=== PATIENT | male | born 1995 | race Two or more races ===

== ENCOUNTER 2020-10-25 19:22 | Emergency (ER) | payer MEDICAID, OTHER ==
[~2020-10-25] VITALS: Ht 188 cm; Wt 97.6 kg
--- NOTE | 2020-10-25 19:54 | NUR ---
PT AMBULATORY TO ROOM 34 W/ C/O NAUSEA, STEWART, FATIGUE, FEVER, SORE THROAT AND CONGESTION STARTED THURSDAY. PT STATES HE DOES NOT KNOW IF HE HAS HAD CONTACT W/ ANYONE WHO HAS COVID. PT HAS NOT BEEN VACCINATED. PT RESTING ON [facility]. NADN. VSS. CALL LIGHT IN REACH. PT STATES NO ONE ELSE IN FAMILY/HOUSEHOLD IS SICK.
--- NOTE | 2020-10-25 20:23 | NUR ---
PT RESTING ON GURNEY. NADN. AREVALO.
--- NOTE | 2020-10-25 20:40 | NUR ---
STUDENT AT BEDSIDE FOR EVAL. NOTIFIED OF TEMP IN LOBBY 100.9
--- NOTE | 2020-10-25 20:58 | NUR ---
REPORT GIVEN TO VICKEY GARZA.
[2020-10-25] MEDS ORDERED: IBUPROFEN 200 MG TABLET PO ONE (21:00)
[2020-10-25] MEDS ORDERED: IBUPROFEN 200 MG TABLET ONE (21:00)
[2020-10-25 21:06] VITALS: BP 118/73
[2020-10-25] MEDS ORDERED: DEXAMETHASONE 4 MG TABLET PO ONE (22:00)
[2020-10-25] MEDS ORDERED: DEXAMETHASONE 4 MG TABLET ONE (22:13)
--- NOTE | 2020-10-25 22:23 | NUR ---
Patient given discharge instructions and they have confirmed that they understand the instructions. Patient ambulatory with steady gait.
== END 2020-10-25 22:24 | disposition home or self-care (01) ==
LOC: ED 21:59
DX: U07.1 COVID-19 (principal); J18.9 Pneumonia, unspecified organism; R07.89 Other chest pain; J02.9 Acute pharyngitis, unspecified; R00.0 Tachycardia, unspecified
CPT/HCPCS: 71045; 87081; 87880; 93005; 99285; U0003; U0005

== ENCOUNTER 2020-10-29 03:44 | Inpatient (IN) | payer OTHER ==
[~2020-10-29] VITALS: Ht 188 cm; Wt 94.7 kg
[2020-10-29] MEDS ORDERED: ACETAMINOPHEN 325 MG TABLET PO ONE (04:00)
[2020-10-29] MEDS ORDERED: CEFTRIAXONE 1,000 MG in DEXTROSE 5% 50 ML IVPB ONE (04:00)
[2020-10-29] MEDS ORDERED: AZITHROMYCIN 500 MG in SODIUM CHLORIDE 0.9% 250 ML IVPB ONE (04:00)
[2020-10-29] MEDS ORDERED: SODIUM CHLORIDE FLUSH 10ML SYR IVF ONE (04:00)
[2020-10-29] MEDS ORDERED: SODIUM CHLORIDE 0.9% 1,000ML IVBOLUS ONE (04:00)
[2020-10-29] MEDS ORDERED: DEXAMETHASONE 4 MG/ML, 1ML ONE (04:12)
[2020-10-29] MEDS ORDERED: ONDANSETRON 2MG/ML, 2ML ONE (04:13)
[2020-10-29] MEDS ORDERED: ACETAMINOPHEN 325 MG TABLET ONE (04:13)
[2020-10-29] MEDS ORDERED: DEXAMETHASONE 4 MG/ML, 5ML ONE (04:19)
--- NOTE | 2020-10-29 04:27 | NUR ---
Patient presents to ER c/o fever and cough. Patient was seen for same x3 days ago and dx with COVID pna. Tonight, per monitor at home, patient SPO2 84-87% with temp of 100.5. Patient is in NAD. Respirations even and unlabored. O2 admin, IV established, meds admin per jun.
[2020-10-29] MEDS ORDERED: DEXAMETHASONE 4 MG/ML, 1ML IVPush ONE (04:30)
[2020-10-29] MEDS ORDERED: ONDANSETRON 2MG/ML, 2ML IVPush ONE (04:30)
[2020-10-29 04:39] LABS: BASOPHILS % (AUTO) 1 % (0-1); EOSINOPHILS % (AUTO) 0 % (1-7); LYMPHOCYTES % (AUTO) 21 % (22-44); MEAN CORPUSCULAR HGB CONC 34.6 g/dL (33.2-36.2); MEAN PLATELET VOLUME 7.8 fL (7.4-10.4); MONOCYTES % (AUTO) 8 % (2-9); NEUTROPHILS % (AUTO) 70 % (42-75); PLATELET COUNT 204 x10^3/uL (130-400); RED CELL DISTRIBUTION WIDTH 13.7 % (9.4-14.8)
[2020-10-29 04:48] LABS: ALANINE AMINOTRANSFERASE 54 U/L (12-78); ALBUMIN 3.1 g/dL (3.4-5.0); ANION GAP 4 mmol/L (5-15); CALCIUM 7.9 mg/dL (8.5-10.1); CHLORIDE 110 mmol/L (98-107); CREATININE 0.91 mg/dL (0.7-1.3)
[2020-10-29 04:54] LABS: ALKALINE PHOSPHATASE 56 U/L (45-117); BILIRUBIN,TOTAL 0.4 mg/dL (0.2-1.0); TOTAL PROTEIN 7.7 g/dL (6.4-8.2)
[2020-10-29] MEDS ORDERED: ZOLPIDEM 5MG TABLET PO PRN (06:30)
[2020-10-29] MEDS ORDERED: DOCUSATE 100 MG CAPSULE PO PRN (06:30)
[2020-10-29] MEDS: NS + 20MEQ KCL 1,000 ML IV SCH (06:30)
[2020-10-29] MEDS ORDERED: OXYcodone IR 5MG TABLET PO PRN (06:30)
[2020-10-29] MEDS ORDERED: METHOCARBAMOL 500 MG TABLET PO PRN (06:30)
[2020-10-29] MEDS ORDERED: PHARMACY MAY ADJ FOR RENAL FX MC PRN (06:30)
[2020-10-29] MEDS ORDERED: GUAIFENESIN/COD200MG-20MG/10ML LIQUID PO PRN (06:30)
[2020-10-29] MEDS ORDERED: ONDANSETRON 2MG/ML, 2ML IVPush PRN (06:30)
[2020-10-29] MEDS ORDERED: ACETAMINOPHEN 325 MG TABLET PO PRN (06:30)
[2020-10-29] MEDS ORDERED: ENALAPRILAT 1.25 MG/ML, 2ML IVPush PRN (06:30)
[2020-10-29] MEDS: ENOXAPARIN 40 MG/0.4 ML SQ SCH (06:40)
[2020-10-29] MEDS ORDERED: ENOXAPARIN 40 MG/0.4 ML ONE (06:46)
--- NOTE | 2020-10-29 07:00 | NUR ---
Report to VICKEY Kilpatrick. Patient care transferred.
--- NOTE | 2020-10-29 07:06 | NUR ---
ASSUMED CARE OF PT. HE IS RESTING IN [facility] (HOSP BED REQUESTED) W/ FAMILY BEDSIDE. NADN, CALL LIGHT W/IN REACH.
--- NOTE | 2020-10-29 07:46 | NUR ---
ASSESSED PT. HE WAS FOUND SLEEPING ON [facility], NADN. PT DENIES ANY NEED. PT HOSPITAL BED REQUESTED. CALL LIGHT W/IN REACH.
[2020-10-29] MEDS ORDERED: ASCORBIC ACID 500 MG TABLET ONE (08:35)
[2020-10-29] MEDS ORDERED: ZINC SULFATE 220 MG CAPSULE ONE (08:35)
[2020-10-29] MEDS ORDERED: BENZONATATE 100 MG CAPSULE ONE (08:36)
--- NOTE | 2020-10-29 08:41 | NUR ---
MED REQUEST SENT TO PHARMACY
--- NOTE | 2020-10-29 08:53 | NUR ---
task RN: pt mother requesting meal tray for patient. pt currently sleeping. primary RN to be notified
[2020-10-29] MEDS ORDERED: REMDESIVIR 200 MG in SODIUM CHLORIDE 0.9% 250 ML IVPB ONE (09:00)
[2020-10-29] MEDS: ZINC SULFATE 220 MG CAPSULE PO SCH (09:04)
[2020-10-29] MEDS: ASCORBIC ACID 500 MG TABLET PO SCH ×2 (09:04→20:03)
[2020-10-29] MEDS: BENZONATATE 100 MG CAPSULE PO SCH ×3 (09:05→20:03)
--- NOTE | 2020-10-29 09:28 | NUR ---
REQUESTED MEAL FOR PT, CN SAID NONE FOR VISITORS AT THIS TIME. PT MEDICATED PER JUN.
--- NOTE | 2020-10-29 10:18 | NUR ---
REQUESTED MEAL AGAIN IT HAS NOT YET ARRIVED. OFFERED HOSPITAL BED, PT DENIES WANTING IT AT THIS TIME. CALL LIGHT W/IN REACH, NICK.
[2020-10-29] MEDS: ALBUTEROL-IPRATROPIUM MDI INH INH SCH ×2 (10:58→16:55)
--- NOTE | 2020-10-29 11:23 | NUR ---
PT RESTING IN [facility]. CALL LIGHT W/IN REACH.
--- NOTE | 2020-10-29 12:14 | NUR ---
PT RESTING IN [facility], HIS TUBIN GHAD BECOME LOOSE WHICH WAS RETIGHTENED AND IV IN PLACE. PT OFFERED HOSPITAL BED, PT DECLINED. HE ALSO DECLINED LUNCH AT THIS TIME HE RECEIVED LATE BREAKFAST. NICK, CALL LIGHT W/IN REACH.
--- NOTE | 2020-10-29 13:32 | NUR ---
SBAR REPORT GIVEN TO PENNIE, ANSWERED QUESTIONS. PT IS READY TO TRANSFER UP TO THE FLOOR.
--- NOTE | 2020-10-29 13:39 | NUR ---
MOM WAS NOTIFIED SHE COULD NOT GO UP TO THE UNIT WITH PATIENT D/T OUR COVID VISITING POLICY.
[2020-10-29 14:00] VITALS: BP 119/75
[2020-10-29 14:39] VITALS: BP 119/75
[2020-10-29] MEDS: DEXAMETHASONE 4 MG TABLET PO SCH (16:55)
[2020-10-29 18:45] VITALS: BP 122/79
[2020-10-29] MEDS: ACETAMINOPHEN 325 MG TABLET PO PRN (20:06)
[2020-10-30 00:54] VITALS: BP 115/71
[2020-10-30] MEDS: ALBUTEROL-IPRATROPIUM MDI INH INH SCH ×5 (00:58→23:07)
[2020-10-30] MEDS: NS + 20MEQ KCL 1,000 ML IV SCH ×2 (00:58→16:41)
[2020-10-30] MEDS: CEFTRIAXONE 2 GM in DEXTROSE 5% 50 ML IVPB SCH (04:25)
[2020-10-30 04:33] LABS: BASOPHILS % (AUTO) 0 % (0-1); EOSINOPHILS % (AUTO) 0 % (1-7); LYMPHOCYTES % (AUTO) 21 % (22-44); MEAN CORPUSCULAR HEMOGLOBIN 30.8 pg (27.5-34.5); MEAN CORPUSCULAR HGB CONC 34.1 g/dL (33.2-36.2); MEAN PLATELET VOLUME 7.2 fL (7.4-10.4); MONOCYTES % (AUTO) 10 % (2-9); NEUTROPHILS % (AUTO) 69 % (42-75); PLATELET COUNT 229 x10^3/uL (130-400); RED BLOOD COUNT 5.07 x10^6/uL (4.38-5.82); RED CELL DISTRIBUTION WIDTH 13.8 % (9.4-14.8)
[2020-10-30 04:42] LABS: ALANINE AMINOTRANSFERASE 54 U/L (12-78); ALBUMIN 2.7 g/dL (3.4-5.0); ANION GAP 3 mmol/L (5-15); CALCIUM 7.8 mg/dL (8.5-10.1); CHLORIDE 110 mmol/L (98-107); CREATININE 0.68 mg/dL (0.7-1.3); INTERNATIONAL NORMALIZED RATIO 1.07 (0.93-1.1); PROTHROMBIN TIME 11.4 Seconds (9.6-11.5)
[2020-10-30 04:44] LABS: ALKALINE PHOSPHATASE 46 U/L (45-117); BILIRUBIN,TOTAL 0.3 mg/dL (0.2-1.0); TOTAL PROTEIN 6.8 g/dL (6.4-8.2)
[2020-10-30] MEDS: ENOXAPARIN 40 MG/0.4 ML SQ SCH (06:07)
[2020-10-30 07:18] VITALS: BP 100/61
[2020-10-30] MEDS: DEXAMETHASONE 4 MG TABLET PO SCH ×2 (09:07→16:40)
[2020-10-30] MEDS: AZITHROMYCIN 500 MG TABLET PO SCH (09:07)
[2020-10-30] MEDS: REMDESIVIR 100 MG in SODIUM CHLORIDE 0.9% 250 ML IVPB SCH (09:07)
[2020-10-30] MEDS: ACETAMINOPHEN 325 MG TABLET PO PRN ×3 (09:08→21:26)
[2020-10-30] MEDS: ASCORBIC ACID 500 MG TABLET PO SCH ×2 (09:08→21:27)
[2020-10-30] MEDS: ZINC SULFATE 220 MG CAPSULE PO SCH (09:08)
[2020-10-30] MEDS: BENZONATATE 100 MG CAPSULE PO SCH ×3 (09:08→21:27)
[2020-10-30 12:03] VITALS: BP 140/80
[2020-10-30 19:09] VITALS: BP 131/80
[2020-10-31 01:53] VITALS: BP 117/71
[2020-10-31 04:46] LABS: ALBUMIN 2.9 g/dL (3.4-5.0); ANION GAP 5 mmol/L (5-15); CALCIUM 8.2 mg/dL (8.5-10.1); CHLORIDE 110 mmol/L (98-107)
[2020-10-31 04:49] LABS: ALANINE AMINOTRANSFERASE 52 U/L (12-78); ALKALINE PHOSPHATASE 46 U/L (45-117); BILIRUBIN,TOTAL 0.3 mg/dL (0.2-1.0); CREATININE 0.68 mg/dL (0.7-1.3)
[2020-10-31] MEDS: ALBUTEROL-IPRATROPIUM MDI INH INH SCH ×4 (05:12→22:25)
[2020-10-31] MEDS: CEFTRIAXONE 2 GM in DEXTROSE 5% 50 ML IVPB SCH (05:12)
[2020-10-31] MEDS: ENOXAPARIN 40 MG/0.4 ML SQ SCH (05:13)
[2020-10-31] MEDS: ACETAMINOPHEN 325 MG TABLET PO PRN ×2 (05:14→20:56)
[2020-10-31] MEDS: NS + 20MEQ KCL 1,000 ML IV SCH ×2 (06:08→22:26)
[2020-10-31 07:51] VITALS: BP 117/71
[2020-10-31] MEDS: ZINC SULFATE 220 MG CAPSULE PO SCH (08:43)
[2020-10-31] MEDS: AZITHROMYCIN 500 MG TABLET PO SCH (08:43)
[2020-10-31] MEDS: BENZONATATE 100 MG CAPSULE PO SCH ×3 (08:43→20:56)
[2020-10-31] MEDS: ASCORBIC ACID 500 MG TABLET PO SCH ×2 (08:44→20:56)
[2020-10-31] MEDS: DEXAMETHASONE 4 MG TABLET PO SCH ×2 (08:44→17:08)
[2020-10-31] MEDS: REMDESIVIR 100 MG in SODIUM CHLORIDE 0.9% 250 ML IVPB SCH (09:16)
[2020-10-31 12:17] VITALS: BP 132/81
[2020-10-31 20:32] VITALS: BP 125/81
[2020-11-01 00:32] VITALS: BP 128/81
[2020-11-01] MEDS: ALBUTEROL-IPRATROPIUM MDI INH INH SCH ×4 (05:04→21:00)
[2020-11-01] MEDS: CEFTRIAXONE 2 GM in DEXTROSE 5% 50 ML IVPB SCH (05:04)
[2020-11-01] MEDS: ENOXAPARIN 40 MG/0.4 ML SQ SCH (05:04)
[2020-11-01 07:09] VITALS: BP 118/74
[2020-11-01] MEDS: NS + 20MEQ KCL 1,000 ML IV SCH (08:22)
[2020-11-01] MEDS: ASCORBIC ACID 500 MG TABLET PO SCH ×2 (08:22→20:39)
[2020-11-01] MEDS: AZITHROMYCIN 500 MG TABLET PO SCH (08:23)
[2020-11-01] MEDS: BENZONATATE 100 MG CAPSULE PO SCH ×3 (08:23→20:39)
[2020-11-01] MEDS: DEXAMETHASONE 4 MG TABLET PO SCH (08:23)
[2020-11-01] MEDS: ZINC SULFATE 220 MG CAPSULE PO SCH (08:23)
[2020-11-01 08:40] LABS: ANION GAP 5 mmol/L (5-15); CALCIUM 8.2 mg/dL (8.5-10.1); CHLORIDE 109 mmol/L (98-107); CREATININE 0.66 mg/dL (0.7-1.3)
[2020-11-01 08:41] LABS: ALANINE AMINOTRANSFERASE 71 U/L (12-78); ALBUMIN 2.7 g/dL (3.4-5.0)
[2020-11-01 08:42] LABS: ALKALINE PHOSPHATASE 43 U/L (45-117); BILIRUBIN,TOTAL 0.3 mg/dL (0.2-1.0); TOTAL PROTEIN 6.8 g/dL (6.4-8.2)
[2020-11-01] MEDS: REMDESIVIR 100 MG in SODIUM CHLORIDE 0.9% 250 ML IVPB SCH (09:04)
[2020-11-01] MEDS: ACETAMINOPHEN 325 MG TABLET PO PRN (09:11)
[2020-11-01] MEDS ORDERED: FUROSEMIDE 20 MG/2 ML IV ONE (11:00)
[2020-11-01 14:21] VITALS: BP 114/72
[2020-11-01 20:33] VITALS: BP 129/79
[2020-11-02 00:36] VITALS: BP 126/79
[2020-11-02] MEDS: CEFTRIAXONE 2 GM in DEXTROSE 5% 50 ML IVPB SCH (05:11)
[2020-11-02] MEDS: ACETAMINOPHEN 325 MG TABLET PO PRN ×2 (05:16→09:34)
[2020-11-02] MEDS: ALBUTEROL-IPRATROPIUM MDI INH INH SCH ×3 (05:19→16:14)
[2020-11-02] MEDS: ENOXAPARIN 40 MG/0.4 ML SQ SCH (05:23)
[2020-11-02] MEDS ORDERED: DEXAMETHASONE 4 MG TABLET PO SCH (09:00)
[2020-11-02] MEDS ORDERED: DEXA4TAB66 PO (09:06)
[2020-11-02] MEDS ORDERED: BENZ-17 PO (09:06)
[2020-11-02] MEDS ORDERED: Albuterol-Ipratropium Mdi INH (09:06)
[2020-11-02] MEDS ORDERED: ALBU18HF PO (09:07)
[2020-11-02] MEDS: AZITHROMYCIN 500 MG TABLET PO SCH (09:32)
[2020-11-02] MEDS: REMDESIVIR 100 MG in SODIUM CHLORIDE 0.9% 250 ML IVPB SCH (09:32)
[2020-11-02] MEDS: ASCORBIC ACID 500 MG TABLET PO SCH (09:34)
[2020-11-02] MEDS: BENZONATATE 100 MG CAPSULE PO SCH ×2 (09:34→16:14)
[2020-11-02] MEDS: ZINC SULFATE 220 MG CAPSULE PO SCH (09:34)
[2020-11-02 09:39] VITALS: BP 132/71
[2020-11-02 09:39] LABS: ALBUMIN 3.1 g/dL (3.4-5.0); ANION GAP 6 mmol/L (5-15); CALCIUM 8.3 mg/dL (8.5-10.1); CHLORIDE 108 mmol/L (98-107)
[2020-11-02 09:43] LABS: ALANINE AMINOTRANSFERASE 106 U/L (12-78); ALKALINE PHOSPHATASE 41 U/L (45-117); BILIRUBIN,TOTAL 0.4 mg/dL (0.2-1.0); CREATININE 0.75 mg/dL (0.7-1.3); TOTAL PROTEIN 7.2 g/dL (6.4-8.2)
[2020-11-02 12:02] VITALS: BP 131/81
== END 2020-11-02 17:31 | disposition home health service (06) | DRG 871 ==
LOC: ED 05:08 → EDIP 05:14 → 3N 13:46
PROVIDERS: ADMIT Internal Medicine; ATTEND Hospitalist
PROC: XW033E5 Introduction of Remdesivir Anti-infective into Peripheral Vein, Percutaneous Approach, New Technology Group 5 (ICD-10-PCS; principal; 2020-10-29)
DX: A41.9 Sepsis, unspecified organism (principal); J12.82 Pneumonia due to coronavirus disease 2019; J96.01 Acute respiratory failure with hypoxia; U07.1 COVID-19; E87.8 Other disorders of electrolyte and fluid balance, not elsewhere classified
CPT/HCPCS: 36415; 71045; 80053; 83605; 85025; 85379; 85610; 87040; 93005; G0378; J0456; J0696; J1100; J1650; J2405; J3480; J1940; J7030; J7050